=== PATIENT | male | born 1990 | race Caucasian/White ===

== ENCOUNTER 2020-08-31 04:35 | Day surgery (SDC) | payer BC ==
[2020-08-30 09:47] VITALS: BMI 28.0
[2020-08-31 09:11] VITALS: TEMP 100
[2020-08-31 10:10] VITALS: BP 114/71; PULSE 67
== END 2020-08-31 10:11 | disposition home or self-care (01) ==
LOC: JASU-ENDO 04:35
PROVIDERS: ATTEND Internal Medicine Gastroenterology
PROC: 0DJD8ZZ Inspection of Lower Intestinal Tract, Via Natural or Artificial Opening Endoscopic (ICD-10-PCS; principal; 2020-08-31 09:00)
DX: K62.5 Hemorrhage of anus and rectum (principal); Z80.0 Family history of malignant neoplasm of digestive organs

== ENCOUNTER 2021-11-09 17:42 | Emergency (ER) | payer BC, OTHER ==
[2021-11-09 18:00] VITALS: BP 126/73; PULSE 75; RESP 18; TEMP 98; BMI 23.6
== END 2021-11-09 20:00 | disposition home or self-care (01) ==
LOC: JERFT 17:42
DX: K40.90 Unilateral inguinal hernia, without obstruction or gangrene, not specified as recurrent (principal)
CPT/HCPCS: 99281-25